=== PATIENT | female | born 1970 | race Hispanic/Latino ===

== ENCOUNTER 2019-11-01 14:04 | Day surgery (SDC) | payer BC ==
[2019-10-31 16:11] LABS: BASOPHILS % (AUTO) 0.9 % (0.0-5.0); EOSINOPHILS % (AUTO) 2.5 % (0.0-8.0); HEMATOCRIT 44.8 % (36-48); LYMPHOCYTES % (AUTO) 28.3 % (21.0-51.0); MEAN CORPUSCULAR HEMOGLOBIN 27.8 pg (27.0-33.0); MEAN CORPUSCULAR HGB CONC 32.6 g/dL (32.0-36.0); MEAN CORPUSCULAR VOLUME 85.2 fL (79-99); MONOCYTES % (AUTO) 3.9 % (3.0-13.0); NEUTROPHILS % (AUTO) 63.9 % (40.0-77.0); PLATELET COUNT (AUTO) 339 K/uL (130-400); RED BLOOD CELL COUNT(AUTO) 5.26 MIL/uL (4.00-5.50); RED CELL DISTRIBUTION WIDTH 13.3 % (11.0-15.5); WHITE BLOOD COUNT (AUTO) 8.2 K/uL (4.8-10.8)
[2019-10-31 16:24] LABS: CREATININE 0.9 mg/dL (0.5-1.5); POTASSIUM 3.6 mmol/L (3.5-5.1)
[2019-10-31 16:42] VITALS: BP 149/78
[~2019-11-01] VITALS: Ht 160 cm; Wt 83.6 kg
[2019-11-01] VITALS (14 sets, daily range): BP systolic 106–141; BP diastolic 37–76
[2019-11-01] MEDS: CEFAZOLIN SODIUM 1 GM VIAL IVP SCH ×2 (06:00→16:00)
[~2019-11-01 14:04] MED LIST: BUSP15 PO; DULA0.75 SQ; ESCI20TA PO; THYR60TA2 PO; THYR90TA PO; ZIAC5 PO
[2019-11-01] MEDS ORDERED: SODIUM CHLORIDE 0.9% 1000ML 1,000 ML IV ONE (14:09)
[2019-11-01] MEDS ORDERED: MIDAZOLAM HCL 1 MG/ML 2ML VIAL ONE (15:12)
[2019-11-01] MEDS ORDERED: PROPOFOL 10 MG/ML 20ML VIAL IV ONE (15:12)
[2019-11-01] MEDS ORDERED: FENTANYL CITRATE PF 50 MCG/1 ML 2ML VIAL ONE ×2 (15:12→18:17)
[2019-11-01] MEDS ORDERED: LIDOCAINE PF 2% 5ML ABBOJECT ONE (15:12)
[2019-11-01] MEDS ORDERED: ROCURONIUM 10MG/1ML SYR 10 MG/ML ML ONE (15:12)
--- NOTE | 2019-11-01 15:15 | NUR ---
SURGICAL PREP cleansed 2% chlorhexidine cloth Addendum: 11/01/19 at 1527 by MICHAEL EDWARD RN RN Amended: Links added.
[2019-11-01] MEDS ORDERED: CEFAZOLIN SODIUM 1 GM VIAL ONE ×3 (16:00→17:15)
[2019-11-01] MEDS ORDERED: BUPIVACAINE/EPI/PF 0.5% 30ML VIAL IJ ONE (16:01)
[2019-11-01] MEDS ORDERED: EPHEDRINE SULFATE 50 MG/ML AMPULE ONE (16:44)
[2019-11-01] MEDS ORDERED: ONDANSETRON HCL 4 MG/2 ML VIAL ONE (17:06)
[2019-11-01] MEDS ORDERED: GLYCOPYRROLATE 1 MG/5 ML SYRINGE ONE (17:06)
[2019-11-01] MEDS ORDERED: NEOSTIGMINE 5MG/5ML SYR IV ONE (17:06)
[2019-11-01] MEDS ORDERED: KETOROLAC TROMETHAMINE 30MG/ML ONE (17:39)
[2019-11-01] MEDS ORDERED: IBUP-2070 PO (18:05)
[2019-11-01] MEDS ORDERED: ACET1TAB12 PO (18:05)
[2019-11-01] MEDS ORDERED: CEPH500B PO (18:05)
--- NOTE | 2019-11-01 19:20 | NUR ---
PT AAOX3, PT STABLE, PT GIVEN PRESCRIPTIONS FOR MEDICATIONS AND INSTRUCTIONS ON CRUTCH USE, PT GIVEN PAIR OF CRUTCHES FROM SUPPLY. PT AND SPOUSE VERBALIZED UNDERSTANDING , PT IV D/C, PT DRESSED WITH ASSISTANCE, PT TAKEN OUT IN WHEELCHAIR AND DRIVEN HOME BY SPOUSE.
== END 2019-11-01 19:20 | disposition home or self-care (01) ==
LOC: DAH 14:04
PROVIDERS: ATTEND Orthopaedic Surgery
DX: M65.861 Other synovitis and tenosynovitis, right lower leg (principal); G89.29 Other chronic pain; M25.561 Pain in right knee; I10 Essential (primary) hypertension; E11.9 Type 2 diabetes mellitus without complications; E03.9 Hypothyroidism, unspecified; M19.90 Unspecified osteoarthritis, unspecified site; Z96.651 Presence of right artificial knee joint; Z85.850 Personal history of malignant neoplasm of thyroid; Z79.899 Other long term (current) drug therapy; Z90.49 Acquired absence of other specified parts of digestive tract; Z98.890 Other specified postprocedural states; Z82.49 Family history of ischemic heart disease and other diseases of the circulatory system; Z83.3 Family history of diabetes mellitus; Z82.3 Family history of stroke
CPT/HCPCS: 29875; 36415; 80048; 82948 ×2; 85025; 87070; 87076; 87205; A4215; A4221; A4222; A4223; A4606; A4649 ×2; A4663; A4930; A6223; A6260; J0690 ×4; J1885; J2001; J2250; J2405; J2704; J2710; J3010 ×2; J3490 ×3; J7030

== ENCOUNTER 2021-10-07 06:27 | Day surgery (SDC) | payer BC ==
[2021-10-05 11:30] VITALS: BP 125/69
[2021-10-05 11:44] LABS: EOSINOPHILS % (AUTO) 4.7 % (0.0-8.0); HEMATOCRIT 42.9 % (36-48); MEAN CORPUSCULAR HGB CONC 32.9 g/dL (32.0-36.0); MEAN CORPUSCULAR VOLUME 85.3 fL (79-99); MONOCYTES % (AUTO) 5.2 % (3.0-13.0); NEUTROPHILS % (AUTO) 65.4 % (40.0-77.0); PLATELET COUNT (AUTO) 309 K/uL (130-400); RED BLOOD CELL COUNT(AUTO) 5.03 MIL/uL (4.00-5.50); RED CELL DISTRIBUTION WIDTH 13.5 % (11.0-15.5); WHITE BLOOD COUNT (AUTO) 8.7 K/uL (4.8-10.8)
[2021-10-05 11:52] LABS: POTASSIUM 4.2 mmol/L (3.5-5.1)
[~2021-10-07] VITALS: Ht 157.5 cm; Wt 90.3 kg
[2021-10-07] VITALS (16 sets, daily range): BP systolic 102–135; BP diastolic 51–91
[~2021-10-07 06:27] MED LIST changes: +ATOR10TA69 PO; +BISO-1 PO; +CEFAZOLIN SODIUM 1 GM VIAL IVP SCH; -DULA0.75 SQ; -ESCI20TA PO; +FLUO20CA30 PO; +INSU100V37 SQ; +SEMA14TA PO; -ZIAC5 PO
[2021-10-07] MEDS ORDERED: 0.9%NACL 1000ML 1,000 ML IV ONE (06:48)
[2021-10-07] MEDS: CEFAZOLIN SODIUM 1 GM VIAL ONE ×2 (07:00→08:40)
[2021-10-07] MEDS ORDERED: FENTANYL CITRATE PF 50 MCG/1 ML 2ML VIAL ONE ×2 (07:57→11:06)
[2021-10-07] MEDS ORDERED: DEXAMETHASONE SOD PHOSPHATE 10MG/ML 1ML VIAL ONE (07:57)
[2021-10-07] MEDS ORDERED: ONDANSETRON 4MG INJ ONE (07:57)
[2021-10-07] MEDS ORDERED: LIDOCAINE PF 100MG/5ML (2%) SYRINGE 5ML ONE (07:57)
[2021-10-07] MEDS ORDERED: PROPOFOL 10 MG/ML 20ML VIAL IV ONE (07:58)
[2021-10-07] MEDS ORDERED: MIDAZOLAM HCL 1 MG/ML 2ML VIAL ONE ×2 (07:58→08:34)
[2021-10-07] MEDS ORDERED: MEPERIDINE-PF 25 MG/ML SYG ONE ×2 (07:59→10:51)
[2021-10-07] MEDS ORDERED: ROPIVACAINE 0.5% 5MG/ML 30ML IJ ONE (08:03)
[2021-10-07] MEDS ORDERED: EPHEDRINE SULFATE 50 MG/ML AMPULE ONE (08:50)
[2021-10-07] MEDS ORDERED: KETAMINE 50MG/ML SYRINGE 50 MG/ML DISP.SYRIN IV ONE ×2 (09:08→09:11)
[2021-10-07] MEDS ORDERED: PHENYLEPHRINE HCL 10 MG/ML 1ML VIAL IV ONE (09:18)
[2021-10-07] MEDS ORDERED: HYDR-4060 PO (11:39)
[2021-10-07] MEDS ORDERED: CEPH500B PO (11:39)
== END 2021-10-07 13:45 | disposition home or self-care (01) ==
LOC: DAH 06:27
PROVIDERS: ATTEND Orthopaedic Surgery
DX: M19.072 Primary osteoarthritis, left ankle and foot (principal); Z20.822 Contact with and (suspected) exposure to COVID-19; M20.21 Hallux rigidus, right foot; M21.41 Flat foot [pes planus] (acquired), right foot; I10 Essential (primary) hypertension; F41.9 Anxiety disorder, unspecified; F32.9 Major depressive disorder, single episode, unspecified; E11.9 Type 2 diabetes mellitus without complications; E03.9 Hypothyroidism, unspecified; Z82.49 Family history of ischemic heart disease and other diseases of the circulatory system; Z83.3 Family history of diabetes mellitus; Z80.9 Family history of malignant neoplasm, unspecified; Z72.89 Other problems related to lifestyle; Z79.899 Other long term (current) drug therapy
CPT/HCPCS: 28750; 36415; 64445; 73630; 76942; 80048; 82948 ×2; 85025; 87635; A4215; A4216; A4221; A4222; A4223 ×2; A4649; A4663; A5120; A6446; C1713 ×7; C9803; G0168; J0690; J1100; J2001; J2175 ×2; J2250 ×2; J2370; J2405; J2704; J2795; J3010 ×2; J3490 ×3; J7030

== ENCOUNTER → 2023-07-05 | Outpatient (CLI) | payer BC ==
[~2023-07-05] MED LIST changes: -CEFAZOLIN SODIUM 1 GM VIAL IVP SCH; +CEPH500B PO; +HYDR-4060 PO; -SEMA14TA PO; +SEMA14TA2 PO
[2023-07-05 13:00] LABS: CHOLESTEROL 187 mg/dL (<200); HDL CHOLESTEROL 55 mg/dL (35-85); LDL DIRECT 104 mg/dL (0-99); TRIGLYCERIDES 90 mg/dL (30-200)
== END | disposition home or self-care (01) ==
LOC: LAB 11:55
PROVIDERS: ATTEND Internal Medicine Cardiovascular Disease
DX: I10 Essential (primary) hypertension (principal); E78.5 Hyperlipidemia, unspecified; R06.02 Shortness of breath
CPT/HCPCS: 36415; 80061

== ENCOUNTER → 2023-07-05 | Outpatient (CLI) | payer OTHER | END | disposition home or self-care (01) | LOC: OIH 10:41 | PROVIDERS: ATTEND Internal Medicine Cardiovascular Disease | DX: Z13.6 Encounter for screening for cardiovascular disorders (principal) | CPT/HCPCS: 75571 ==

== ENCOUNTER 2024-09-05 06:10 | Day surgery (SDC) | payer OTHER ==
[2024-09-03 14:57] VITALS: BP 111/67; PULSE 74; RESP 18; TEMP 97.9
[2024-09-03 15:02] LABS: BASOPHILS # (AUTO) 0.05 K/uL (0.00-0.20); BASOPHILS % (AUTO) 0.7 % (0.0-5.0); EOSINOPHILS # (AUTO) 0.09 K/uL (0.00-0.70); EOSINOPHILS % (AUTO) 1.2 % (0.0-8.0); HEMATOCRIT 36.8 % (36-48); IMMATURE GRANULOCYTE ABSOLUTE 0.03 K/uL (0-1); LYMPHOCYTES # (AUTO) 1.6 K/uL (1.0-4.8); LYMPHOCYTES % (AUTO) 22.2 % (21.0-51.0); MEAN CORPUSCULAR HEMOGLOBIN 26.8 pg (27.0-33.0); MEAN CORPUSCULAR HGB CONC 33.2 g/dL (32.0-36.0); MEAN CORPUSCULAR VOLUME 80.7 fL (79-99); MONOCYTES # (AUTO) 0.3 K/uL (0.1-1.0); MONOCYTES % (AUTO) 4.6 % (3.0-13.0); NEUTROPHILS # (AUTO) 5.3 K/uL (1.8-7.7); NEUTROPHILS % (AUTO) 70.9 % (40.0-77.0); PLATELET COUNT (AUTO) 251 K/uL (130-400); RED BLOOD CELL COUNT(AUTO) 4.56 MIL/uL (4.00-5.50); RED CELL DISTRIBUTION WIDTH 14.2 % (11.0-15.5); WHITE BLOOD COUNT (AUTO) 7.4 K/uL (4.8-10.8)
[2024-09-03 15:22] LABS: POTASSIUM 3.9 mmol/L (3.5-5.1)
[2024-09-05] VITALS (13 sets, daily range): BP systolic 86–117; BP diastolic 35–73; PULSE 67–97; RESP 10–18; TEMP 97–97.5
[~2024-09-05] VITALS: Ht 157.5 cm; Wt 64.9 kg
[~2024-09-05 06:10] MED LIST changes: +ARMOUR THYROID PO; -ATOR10TA69 PO; -CEPH500B PO; +CLON0.5T4 PO; +DOXE25CA3 PO; +ESTRADIOL PATCH TD; -FLUO20CA30 PO; +FLUO40CA7 PO; +FURO20TA4 PO; +HYDR-3422 PO; -HYDR-4060 PO; -INSU100V37 SQ; -SEMA14TA2 PO; -THYR60TA2 PO; -THYR90TA PO; +TIRZ15PE SQ
[2024-09-05] MEDS ORDERED: SUCCINYLCHOLINE CHLORIDE 20 MG/ML 10 ML VIAL ONE (06:54)
[2024-09-05] MEDS ORDERED: dexaMETHasone SOD PHOSPHATE 10MG/ML 1ML VIAL ONE (06:54)
[2024-09-05] MEDS ORDERED: LIDOCAINE PF 100MG/5ML (2%) SYRINGE 5ML ONE (06:54)
[2024-09-05] MEDS ORDERED: NEOSTIGMINE METHYLSULFATE 1MG/ML IV ONE (06:55)
[2024-09-05] MEDS ORDERED: FENTanyl CITRate PF 50 MCG/1 ML 2ML VIAL ONE ×2 (06:55→10:25)
[2024-09-05] MEDS ORDERED: GLYCOPYRROLATE 0.2 MG/ML 5 ML VIAL ONE (06:55)
[2024-09-05] MEDS ORDERED: proPOFol 10 MG/ML 20ML VIAL IV ONE (06:55)
[2024-09-05] MEDS ORDERED: MIDAZOLAM HCL 1 MG/ML 2ML VIAL ONE ×2 (06:55→07:32)
[2024-09-05] MEDS ORDERED: ondanSETRON 4MG INJ ONE (06:55)
[2024-09-05] MEDS ORDERED: rocuRONium bROMide 10MG/1ML 5ML VL ONE (06:56)
[2024-09-05] MEDS ORDERED: ROPivacaine 0.5% 5MG/ML 30ML ONE (07:06)
[2024-09-05] MEDS: ceFAZolin SODIUM 2 GM VIAL ONE (07:54)
[2024-09-05] MEDS: 0.9%NACL 1000ML 1,000 ML IV ONE (07:59)
[2024-09-05] MEDS ORDERED: SUGAMMADEX SODIUM 200 MG/2 ML VIAL IV ONE (09:00)
[2024-09-05] MEDS ORDERED: acetaMINOPHEN 100 ML ONE (09:01)
[2024-09-05] MEDS ORDERED: phenylEPHRINE HCL 10 MG/ML 1ML VIAL IV ONE (10:48)
--- NOTE | 2024-09-05 11:30 | HMCIMG ---
FOOT COMP 3+VWS LT REASON: Remov. HRDware LT 1st phalanx TECHNIQUE: 5 views were obtained. These document the hardware revision in the first MTP joint. Fluoroscopy time was 0.11 minutes. IMPRESSION: 1. Documentation of hardware revision procedure left first toe.
[2024-09-05] MEDS ORDERED: HYDR-4060 PO (11:36)
[2024-09-05] MEDS ORDERED: CEPH500B PO (11:36)
--- NOTE | 2024-09-05 11:42 | OP ---
Operative Note: DATE OF PROCEDURE: 09/05/24 SURGEON: LATANYA CLAROS MD BIOSOLIDS MANAGEMENT TECHNICIAN: [Andi Berman CFA] ANESTHESIA: [General anesthesia plus regional block] ANESTHESIOLOGIST/SENIOR NET ARCHITECT: [Price Lynch CRNA] PREOPERATIVE DIAGNOSIS: [Acquired hallux varus left great toe] POSTOPERATIVE DIAGNOSIS: [Same] PROCEDURE: [Left great toe valgus osteotomy] ESTIMATED BLOOD LOSS: [50 cc] INDICATIONS: [The patient is a 53-year-old female with history of hallux rigidus that underwent a metatarsophalangeal joint fusion several years ago and return to our clinic later on stating that she was having problems with the direction of the toe as well as the angulation. The patient was found to have a straight toe with separation of the 1st and 2nd toe. The dorsiflexion of the MTP fusion in my opinion was normal but the patient was requested if possible to decrease the angulation. The patient was scheduled for removal of hardware of the 1st MTP joint, valgus osteotomy fixation. Procedure understood, risks, benefits and possible complications and agreed signed the consent form] DESCRIPTION OF PROCEDURE: [After adequate general anesthesia was achieved and regional block obtain the patient's left lower extremity was prepped and draped in the usual manner. Placement of the tourniquet proximal thigh. The extremity was elevated and exsanguinated with the Esmarch band and the tourniquet inflated to 250 mm mmHg. The Esmarch band was then removed. Attention was given to the dorsal aspect of the foot 1st metatarsal phalangeal area where a surgical scar previously present was opened through skin followed by dissection of the subcutaneous tissue which was extremely thin. The extensor pollicis longus was identified and dissected free and elevated finding the plate that was present from previous surgery. With the use of a screwdriver from the [employer] system we proceeded to remove all the screws holding this plate and then we proceeded to remove also a medial screw that was placed across the joint that was fused. The plate was then elevated with the use of an osteotome and passed through to the back table. At this point we proceeded then to identify the previous placement of the metatarsophalangeal joint and noticed to have a excellent fusion. We then proceeded to do a v-shaped osteotomy of approximately 5-10 degrees angulation. We then proceeded to manually put the bones together noticing that the alignment of the bone improved the 1st and 2nd toe being closer but the angulation remained about the same. With the use of the oscillating saw we then proceeded to remove a small amount of the inferior portion of the proximal side of the sternotomy in an oblique fashion and then we proceeded to ream reduced the osteotomy obtain a much better flatter position o f the toe. A K-wire was then passed across the osteotomy and then after measuring we proceeded to apply a headless compression screw across the osteotomy and then we proceeded to apply a plate on top of the bone but noticing that because of the significant amount of holes present from the previous plate we proceeded to mobilize this plate more lateral and the plate was secured with two distal and two proximal screws obtain an adequate fixation of the osteotomy. X-rays taken by C-arm revealed an adequate correction of the angulation. Irrigation of the wound was carried down with the antibiotic solution and then we proceeded to prepare a mixture of bone graft that was granular in nature and mixed with blood from the patient creating more stiffer putty material and all the holes present were filling with this material. The tourniquet was deflated and the wound was compressed for several minutes and once the bleeding decreased we proceeded to cauterize the excessive bleeding present and proceeded to close the is mild tendon fascia over the tendon and then subcutaneous stitches were placed with 3-0 Vicryl inverted stitches and then the skin was approximated with the use of 3-0 nylon horizontal mattress stitches. The patient's wound was covered with Xeroform, 4x4s, Kerlix roll and an Guille bandage. She was placed in a postop shoe and then she was transferred to the recovery room for follow-up by anesthesia after being awakened and extubated. There were no complications in the procedure.] LATANYA CLAROS MD Sep 05, 2024 11:42
--- NOTE | 2024-09-05 12:48 | NUR ---
Patient aox4. Denies c/o pain or discomfort. Surgical dressing clean, dry and intact. Neurovascularly intact. Ability to wiggle toes intact but denies pain or pressure. Voiced understanding to surgical site precautions and follow up expectations. Understands to wear Surgical Shoe when up. Voided large amount of clear urine. PIV discontinued with catheter tip intact. Full and complete Discharge instructions given to Patient and . All questions answered. W/C to POV with to Home.
== END 2024-09-05 12:55 | disposition home or self-care (01) ==
LOC: DAH 06:10
PROVIDERS: ATTEND Orthopaedic Surgery
DX: M20.32 Hallux varus (acquired), left foot (principal); M79.672 Pain in left foot; I10 Essential (primary) hypertension; M19.90 Unspecified osteoarthritis, unspecified site; E03.9 Hypothyroidism, unspecified; E78.5 Hyperlipidemia, unspecified; Z85.850 Personal history of malignant neoplasm of thyroid; Z79.899 Other long term (current) drug therapy
CPT/HCPCS: 80048; 85025; 36415; 28298; 20680; 64445; 82948 ×2; 88300; 73630; C1713 ×7; J7120; A4649 ×2; J3010 ×2; J1100; J0330; J7030; J3490 ×2; J2003; J2250 ×2; J2704; J2405; J2710; J2795; J2371; J0690; A6223; A4930; A5120; A4215 ×2; A4223; A4213; A4222; A4221; A4663